=== PATIENT | female | born 1995 | race African-American/Black ===

== ENCOUNTER 2016-04-20 16:58 | Emergency (ER) | payer MEDICAID ==
[2016-04-20 17:22] VITALS: BP 107/49
== END 2016-04-20 21:32 | disposition left against medical advice (07) ==
LOC: ER 16:58
DX: Z53.9 Procedure and treatment not carried out, unspecified reason (principal); T85.848A Pain due to other internal prosthetic devices, implants and grafts, initial encounter

== ENCOUNTER 2016-11-18 13:35 | Emergency (ER) | payer MEDICAID ==
[2016-11-18 13:43] VITALS: BP 127/68
[2016-11-18] MEDS ORDERED: TETRACAINE HCL 0.5% OPH SOLN 2 ML ONE (14:23)
[2016-11-18] MEDS ORDERED: TETRACAINE HCL 0.5% OPH SOLN 2 ML OS ONE (14:29)
[2016-11-18] MEDS ORDERED: KETOROLAC TROMETHAMINE 0.45% 4 DROP/0.4 ML DROPERETTE OS ONE (14:30)
[2016-11-18] MEDS ORDERED: KETOROLAC TROMETHAMINE 0.45% 4 DROP/0.4 ML DROPERETTE ONE (14:33)
--- NOTE | 2016-11-18 14:36 | ER Document Report ---
ED Eye Complaint - General Chief Complaint: Eye Problem Stated Complaint: LEFT EYE IRRITATION, SWELLING Time Seen by Provider: 11/18/16 14:18 Notes: 21 yo female c/o left eye swelling after bug flew in eye yesterday. no eye pain , + tearing, + crusting this morning. non-contact wearer TRAVEL OUTSIDE OF THE [place] IN LAST 30 DAYS: No - HPI Onset: Yesterday Occurred at: Outdoors Quality of pain: Achy - Related Data Allergies/Adverse Reactions: naproxen Allergy (Verified 11/18/16 14:21) Home Medications: Current Home Medications Amphetamine Sulfate [Evekeo] 10 mg PO QHS 11/18/16 [History] Dextroamphetamine/Amphetamine [Adderall Xr 30 mg Capsule] 30 mg PO QAM 11/18/16 [History] Past Medical History - General Information source: Patient - Social History Smoking Status: Unknown if Ever Smoked Chew tobacco use (# tins/day): Yes Frequency of alcohol use: Occasional Drug Abuse: None Lives with: Family Family History: None Patient has suicidal ideation: No Patient has homicidal ideation: No - Medical History Medical History: Negative Pulmonary Medical History: Reports: Hx Asthma Renal/ Medical History: Denies: Hx Peritoneal Dialysis Psychiatric Medical History: Reports: Hx Attention Deficit Hyperactivity Disorder Past Surgical History: Reports: Hx Oral Surgery - wisdom teeth, Hx Tonsillectomy - Immunizations Hx Diphtheria, Pertussis, Tetanus Vaccination: No Review of Systems - Review of Systems Constitutional: No symptoms reported EENT: Eye pain Cardiovascular: No symptoms reported Respiratory: No symptoms reported Gastrointestinal: No symptoms reported Genitourinary: No symptoms reported Female Genitourinary: No symptoms reported Musculoskeletal: No symptoms reported Skin: No symptoms reported Hematologic/Lymphatic: No symptoms reported Neurological/Psychological: No symptoms reported Physical Exam - Vital signs Vitals: Temp Pulse Resp BP Pulse Ox 98.2 F 80 16 127/68 H 99 11/18/16 13:40 11/18/16 13:40 11/18/16 13:40 11/18/16 13:40 11/18/16 13:40 Interpretation: Normal - General General appearance: Appears well, Alert - HEENT Head: Normocephalic, Atraumatic Eyes: Normal. No: Periorbital ecchymosis, Periorbital edema Conjunctiva: Injected, Other - no flourescein uptake Extraocular movements intact: Yes Pupils: PERRL Tympanic membrane: Normal Mucous membranes: Moist Pharynx: Normal - Respiratory Respiratory status: No respiratory distress Chest status: Nontender Breath sounds: Normal Chest palpation: Normal - Cardiovascular Rhythm: Regular Heart sounds: Normal auscultation Murmur: No - Abdominal Inspection: Normal Distension: No distension Bowel sounds: Normal Tenderness: Nontender Organomegaly: No organomegaly - Back Back: Normal, Nontender - Extremities General upper extremity: Normal inspection, Nontender, Normal color, Normal ROM , Normal temperature General lower extremity: Normal inspection, Nontender, Normal color, Normal ROM , Normal temperature, Normal weight bearing. No: Skip's sign - Neurological Neuro grossly intact: Yes Cognition: Normal Orientation: AAOx4 Ewing Coma Scale Eye Opening: Spontaneous Mary Ann Coma Scale Verbal: Oriented Mary [place] Coma Scale Motor: Obeys Commands Ewing Coma Scale Total: 15 Speech: Normal Motor strength normal: LUE, RUE, LLE, RLE Sensory: Normal - Psychological Associated symptoms: Normal affect, Normal mood - Skin Skin Temperature: Warm Skin Moisture: Dry Skin Color: Normal Course - Vital Signs Vital signs: Temp Pulse Resp BP Pulse Ox 98.2 F 80 16 127/68 H 99 11/18/16 13:40 11/18/16 13:40 11/18/16 13:40 11/18/16 13:40 11/18/16 13:40 Discharge - Discharge Clinical Impression: Left conjunctivitis Qualifiers: Conjunctivitis type: acute Acute conjunctivitis type: unspecified Qualified Code(s): H10.32 - Unspecified acute conjunctivitis, left eye Condition: Stable Disposition: HOME, SELF-CARE Instructions: Conjunctivitis ([facility]), Eyedrop Use ([facility]) Additional Instructions: eye drops as prescribed cool compresses to eye motrin for swelling and discomfort follow up with primary care if symptoms persist follow up opthomolgy for any worsening Prescriptions: Polymyxin B Sulf/Trimethoprim [Polytrim Eye Drops] 2 ml OS Q6H #1 bottle
== END 2016-11-18 15:03 | disposition home or self-care (01) ==
LOC: ER 13:35
DX: H10.32 Unspecified acute conjunctivitis, left eye (principal); J45.909 Unspecified asthma, uncomplicated; Z88.8 Allergy status to other drugs, medicaments and biological substances; Z72.0 Tobacco use
CPT/HCPCS: 99283; J3490

== ENCOUNTER 2017-06-01 11:13 | Emergency (ER) | payer MEDICAID ==
[2017-06-01 11:18] VITALS: BP 104/53
[2017-06-01] MEDS ORDERED: ONDANSETRON HCL INJ/PF 4 MG/2 ML SDV IV ONE (12:17)
[2017-06-01] MEDS ORDERED: NORMAL SALINE 1000 ML 1,000 ML IV ONE (12:17)
--- NOTE | 2017-06-01 12:17 | ER Document Report ---
HPI - HPI Pain Level: 3 Notes: Patient is a 21-year-old female with no significant past medical history who presents to the ED complaining of nausea, vomiting, loose stool, epigastric pain 1-2 days. Patient states that she did feel "warm" yesterday. Patient states that she has not been able to keep any solids or fluids down and has thrown up every time she is tried. Patient states that yesterday she started throwing blood and continued to throw up blood this morning 7 hours ago. Patient states that the last time she had emesis was at that time. Patient states that she does have intermittent dark stool. Patient has not been taking any medicines for her symptoms. Patient states an allergy to naproxen. Patient is otherwise urinating normally. Denies any headache, fever, neck pain , URI, sore throat, chest pain, palpitations, syncope, cough, shortness of breath, wheeze, dyspnea, urinary retention, dysuria, hematuria, or rash. I have treated and performed a rapid initial assessment of this patient. A comprehensive ED assessment and evaluation of the patient, analysis of test results and completion of medical decision making process will be conducted by additional ED providers. PHYSICAL EXAMINATION: GENERAL: Well-appearing, well-nourished and in no acute distress. A&Ox4. Answers questions appropriately. LUNGS: Breath sounds clear to auscultation bilaterally and equal. No wheezes rales or rhonchi. HEART: Regular rate and rhythm without murmurs, rubs, gallops. ABDOMEN: Soft, nondistended abdomen. No guarding, no rebound. No masses appreciated. Normal bowel sounds present. No CVA tenderness bilaterally. + mild epigastric tenderness (cannot elicit thorough abd exam w/o table, however). Extremities: No cyanosis, clubbing, or edema b/l. NEUROLOGICAL: Normal speech, normal gait. PSYCH: Normal mood, normal affect. - REPRODUCTIVE Reproductive: DENIES: : - DERM Skin Color: Normal, [place] Past Medical History - Social History Smoking Status: Unknown if Ever Smoked Chew tobacco use (# tins/day): No Drug Abuse: None Family History: None Patient has suicidal ideation: No Patient has homicidal ideation: No Pulmonary Medical History: Reports: Hx Asthma Renal/ Medical History: Denies: Hx Peritoneal Dialysis Psychiatric Medical History: Reports: Hx Attention Deficit Hyperactivity Disorder Past Surgical History: Reports: Hx Oral Surgery - wisdom teeth, Hx Tonsillectomy - Immunizations Hx Diphtheria, Pertussis, Tetanus Vaccination: No Vertical Provider Document - INFECTION CONTROL TRAVEL OUTSIDE OF THE [place] IN LAST 30 DAYS: No - RESPIRATORY O2 Sat by Pulse Oximetry: 100 Course - Vital Signs Vital signs: Temp Pulse Resp BP Pulse Ox 98.5 F 71 16 104/53 L 100 06/01/17 11:17 06/01/17 11:17 06/01/17 11:17 06/01/17 11:17 06/01/17 11:17
[2017-06-01 12:59] LABS: ABSOLUTE LYMPHOCYTES (AUTO) 0.9 10^3/uL (0.5-4.7); ABSOLUTE MONOCYTES (AUTO) 0.3 10^3/uL (0.1-1.4); ABSOLUTE NEUT (AUTO) 3.1 10^3/uL (1.7-8.2); BASOPHILS % (AUTO) 0.3 % (0-2); EOSINOPHILS % (AUTO) 0.9 % (0-6); HEMATOCRIT 41.8 % (36.0-47.0); HEMOGLOBIN 14.3 g/dL (12.0-15.5); MEAN CORPUSCULAR HEMOGLOBIN 31.5 pg (27.0-33.4); MEAN CORPUSCULAR HGB CONC 34.2 g/dL (32.0-36.0); MEAN CORPUSCULAR VOLUME 92 fl (80-97); MONOCYTES % (AUTO) 7.6 % (3-13); PLATELET COUNT 225 10^3/uL (150-450); RED BLOOD COUNT 4.54 10^6/uL (3.72-5.28); RED CELL DISTRIBUTION WIDTH 12.5 % (11.5-14.0); SEGMENTED NEUTROPHILS % (AUTO) 71.2 % (42-78); TOTAL CELLS COUNTED % (AUTO) 100 %; WHITE BLOOD COUNT 4.3 10^3/uL (4.0-10.5)
[2017-06-01 13:18] LABS: ALANINE AMINOTRANSFERASE 27 U/L (9-52); ALBUMIN 4.6 g/dL (3.5-5.0); ALKALINE PHOSPHATASE 71 U/L (38-126); ANION GAP 10 (5-19); ASPARTATE AMINO TRANSFERASE 22 U/L (14-36); BILIRUBIN,DIRECT 0.4 mg/dL (0.0-0.4); BILIRUBIN,TOTAL 1.1 mg/dL (0.2-1.3); BLOOD UREA NITROGEN 15 mg/dL (7-20); CALCIUM 10.2 mg/dL (8.4-10.2); CARBON DIOXIDE 26 mmol/L (22-30); CHLORIDE 105 mmol/L (98-107); GLUCOSE 83 mg/dL (75-110); LIPASE 59.7 U/L (23-300); POTASSIUM 4.3 mmol/L (3.6-5.0); SODIUM 140.7 mmol/L (137-145); TOTAL PROTEIN 7.3 g/dL (6.3-8.2)
--- NOTE | 2017-06-01 13:25 | RADIOLOGY REPORT (SQ) ---
EXAM DESCRIPTION: CHEST PA/LAT COMPLETED DATE/TIME: 06/01/2017 1:17 pm REASON FOR STUDY: epigastric pain COMPARISON: None. EXAM PARAMETERS: NUMBER OF VIEWS: two views TECHNIQUE: Digital Frontal and Lateral radiographic views of the chest acquired. RADIATION DOSE: NA LIMITATIONS: none FINDINGS: LUNGS AND PLEURA: No opacities, masses or pneumothorax. No pleural effusion. MEDIASTINUM AND HILAR STRUCTURES: No masses or contour abnormalities. HEART AND VASCULAR STRUCTURES: Heart normal size. No evidence for failure. BONES: No acute findings. HARDWARE: None in the chest. OTHER: No other significant finding. IMPRESSION: NO SIGNIFICANT RADIOGRAPHIC FINDING IN THE CHEST. TECHNICAL DOCUMENTATION: JOB ID: [id number] [employer]- All Rights Reserved
[2017-06-01] MEDS ORDERED: METOCLOPRAMIDE HCL INJ/PF 10 MG/2 ML SDV IV ONE (15:11)
--- NOTE | 2017-06-01 15:17 | ER Document Report ---
ED General - General Chief Complaint: Nausea/Vomiting/Diarrhea Stated Complaint: NAUSEA Time Seen by Provider: 06/01/17 12:05 Mode of Arrival: Ambulatory Information source: Patient Notes: 21-year-old female presents with complaints of nausea vomiting and diarrhea over the past few days. Patient notes she vomits every time she eats. Patient notes the pain was only in the epigastric region and has actually resolved prior to my evaluation Patient denies any fevers or chills denies any similar complaints Patient does note bright red blood in vomit intermittently TRAVEL OUTSIDE OF THE [place] IN LAST 30 DAYS: No - HPI Onset: Other Onset/Duration: Intermittent Quality of pain: Burning Severity: Mild Pain Level: 1 Associated symptoms: Diarrhea, Nausea, Vomiting Exacerbated by: Food Relieved by: Denies Similar symptoms previously: No Recently seen / treated by doctor: No - Related Data Allergies/Adverse Reactions: naproxen Allergy (Verified 06/01/17 12:05) Past Medical History - Social History Smoking Status: Never Smoker Cigarette use (# per day): No Chew tobacco use (# tins/day): No Smoking Education Provided: No Drug Abuse: None Family History: None Patient has suicidal ideation: No Patient has homicidal ideation: No Pulmonary Medical History: Reports: Hx Asthma Renal/ Medical History: Denies: Hx Peritoneal Dialysis Psychiatric Medical History: Reports: Hx Attention Deficit Hyperactivity Disorder Past Surgical History: Reports: Hx Oral Surgery - wisdom teeth, Hx Tonsillectomy - Immunizations Hx Diphtheria, Pertussis, Tetanus Vaccination: No Review of Systems - Review of Systems Notes: REVIEW OF SYSTEMS: CONSTITUTIONAL : Denies fever, chills, or sweats. Denies recent illness. EENT: Denies eye, ear, throat, or mouth pain or symptoms. Denies nasal or sinus congestion or discharge. Denies throat, tongue, or mouth swelling or difficulty swallowing. CARDIOVASCULAR: Denies chest pain. Denies palpitations or racing or irregular heart beat. Denies ankle edema. RESPIRATORY: Denies cough, cold, or chest congestion. Denies shortness of breath, difficulty breathing, or wheezing. GASTROINTESTINAL: Admits nausea vomiting diarrhea epigastric pain blood in vomit GENITOURINARY: Denies difficulty urinating, painful urination, burning, frequency, blood in urine, or discharge. FEMALE GENITOURINARY: Denies vaginal bleeding, heavy or abnormal periods, irregular periods. Denies vaginal discharge or odor. MUSCULOSKELETAL: Denies back or neck pain or stiffness. Denies joint pain or swelling. SKIN: Denies rash, lesions or sores. HEMATOLOGIC : Denies easy bruising or bleeding. LYMPHATIC: Denies swollen, enlarged glands. NEUROLOGICAL: Denies confusion or altered mental status. Denies passing out or loss of consciousness. Denies dizziness or lightheadedness. Denies headache. Denies weakness or paralysis or loss of use of either side. Denies problems with gait or speech. Denies sensory loss, numbness, or tingling. Denies seizures. PSYCHIATRIC: Denies anxiety or stress. Denies depression, suicidal ideation, or homicidal ideation. ALL OTHER SYSTEMS REVIEWED AND NEGATIVE. PHYSICAL EXAMINATION: GENERAL: Well-appearing, well-nourished and in no acute distress. Patient is cuddling in the bed with no difficulty HEAD: Atraumatic, normocephalic. EYES: Pupils equal round and reactive to light, extraocular movements intact, conjunctiva are normal. ENT: Nares patent, oropharynx clear without exudates. Moist mucous membranes. NECK: Normal range of motion, supple without lymphadenopathy LUNGS: Breath sounds clear to auscultation bilaterally and equal. No wheezes rales or rhonchi. HEART: Regular rate and rhythm without murmurs ABDOMEN: Soft, nontender, nondistended abdomen. No guarding, no rebound. No masses appreciated. Female : deferred Musculoskeletal: Normal range of motion, no pitting or edema. No cyanosis. NEUROLOGICAL: Cranial nerves grossly intact. Normal speech, normal gait. Normal sensory, motor exams PSYCH: Normal mood, normal affect. SKIN: Warm, Dry, normal turgor, no rashes or lesions noted. Dictation was performed using SLID voice recognition software Physical Exam - Vital signs Vitals: Temp Pulse Resp BP Pulse Ox 98.5 F 71 16 104/53 L 100 06/01/17 11:17 06/01/17 11:17 06/01/17 11:17 06/01/17 11:17 06/01/17 11:17 Course - Re-evaluation Re-evalutation: 06/01/17 15:33 Patient's examination is completely benign her symptoms have since resolved with intervention here, her lab work noted no significant abnormality, given the bright red blood I will place patient on Pepcid to heal her gastritis which is probably secondary to the vomiting episodes. Otherwise she looks well is in no distress and will be discharged home with GI follow-up After performing a Medical Screening Examination, I estimate there is LOW risk for ACUTE APPENDICITIS, BOWEL OBSTRUCTION, ACUTE CHOLECYSTITIS, PERFORATED DIVERTICULITIS, INCARCERATED HERNIA, PANCREATITIS, PELVIC INFLAMMATORY DISEASE, PERFORATED ULCER, ECTOPIC , or TUBO-OVARIAN ABSCESS, thus I consider the discharge disposition reasonable. Also, there is no evidence or peritonitis , sepsis, or toxicity. I have reevaluated this patient multiple times and no significant life threatening changes are noted. The patient and I have discussed the diagnosis and risks, and we agree with discharging home with close follow-up with the understanding that symptoms and presentations can change. We also discussed returning to the Emergency Department immediately if new or worsening symptoms occur. We have discussed the symptoms which are most concerning (e.g., bloody stool, fever, changing or worsening pain, vomiting) that necessitate immediate return. - Vital Signs Vital signs: Temp Pulse Resp BP Pulse Ox 98.5 F 71 16 104/53 L 100 06/01/17 11:17 06/01/17 11:17 06/01/17 11:17 06/01/17 11:17 06/01/17 12:18 - Laboratory Result Diagrams: 06/01/17 12:47 06/01/17 12:47 Discharge - Discharge Clinical Impression: Nausea vomiting and diarrhea Gastritis Qualifiers: Gastritis type: superficial Chronicity: acute Gastritis bleeding: with bleeding Qualified Code(s): K29.01 - Acute gastritis with bleeding Condition: Stable Disposition: HOME, SELF-CARE Instructions: Antinausea Medication ([facility]), Diarrhea, Nonspecific ([facility]) Prescriptions: Famotidine [Pepcid 20 mg Tablet] 20 mg PO DAILY #12 tablet Metoclopramide HCl [Reglan 10 mg Tablet] 1 - 2 tab PO Q6 #25 tablet Referrals: EZRA WHATLEY MD [ACTIVE STAFF] - Follow up in 3-5 days
== END 2017-06-01 15:46 | disposition home or self-care (01) ==
LOC: ER 11:13
DX: K29.01 Acute gastritis with bleeding (principal); J45.909 Unspecified asthma, uncomplicated; Z88.8 Allergy status to other drugs, medicaments and biological substances
CPT/HCPCS: 99284; 96374; 96375; 36415; 83690; 85025; 80053; 71046; J2765; J2405; J7030

== ENCOUNTER 2017-10-31 06:25 | Emergency (ER) | payer MEDICAID ==
[2017-10-31 06:30] VITALS: BP 114/67
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
== END 2017-10-31 09:00 | disposition home or self-care (01) ==
LOC: ER 06:25
PROC: 2W3RX1Z Immobilization of Left Lower Leg using Splint (ICD-10-PCS; principal; 2017-10-31)
DX: S93.402A Sprain of unspecified ligament of left ankle, initial encounter (principal); S63.91XA Sprain of unspecified part of right wrist and hand, initial encounter; M79.641 Pain in right hand; M25.572 Pain in left ankle and joints of left foot; Y04.0XXA Assault by unarmed brawl or fight, initial encounter; F17.200 Nicotine dependence, unspecified, uncomplicated; J45.909 Unspecified asthma, uncomplicated
CPT/HCPCS: 99283; 73610; 73130; 29515; L4350

== ENCOUNTER 2018-04-09 02:07 | Emergency (ER) | payer MEDICAID ==
[2018-04-09 02:36] VITALS: BP 128/57
[2018-04-09] MEDS ORDERED: PHENAZOPYRIDINE HCL 200 MG TABLET PO ONE (03:59)
[2018-04-09 04:48] LABS: APPEARANCE,URINE SLIGHTLY-CLOUDY; BILIRUBIN,URINE NEGATIVE (NEGATIVE); COLOR,URINE YELLOW; GLUCOSE, URINE NEGATIVE (NEGATIVE); KETONES,URINE NEGATIVE (NEGATIVE); LEUKOCYTE ESTERASE,URINE MODERATE (NEGATIVE); NITRITE,URINE NEGATIVE (NEGATIVE); PROTEIN,URINE NEGATIVE (NEGATIVE); URINE SPECIFIC GRAVITY 1.008; UROBILINOGEN,URINE NEGATIVE mg/dL (<2.0)
[2018-04-09] MEDS ORDERED: CEPHALEXIN 500 MG CAPSULE PO ONE (04:57)
--- NOTE | 2018-04-09 04:57 | ER Document Report ---
ED General - General Chief Complaint: Pain With Urination Stated Complaint: VAGINAL BLEEDING/PAIN WITH URINATION Time Seen by Provider: 04/09/18 02:53 Notes: Patient is a 22-year-old female presents to the emergency department complaining of dysuria for the last 5 days. Patient states the dysuria has increased over the last couple of days and this evening when she urinated and wiped she noted a scant amount of blood on the toilet paper. Patient is denying any vaginal discharge or vaginal lesions. Patient's denying any abdominal pain or fevers, or back pain. Past medical history: ADHD Medications: Adderall Allergies: Ibuprofen, naproxen TRAVEL OUTSIDE OF THE [place] IN LAST 30 DAYS: No - Related Data Allergies/Adverse Reactions: ibuprofen [From Motrin] Allergy (Verified 10/31/17 07:24) naproxen Allergy (Verified 10/31/17 07:24) Past Medical History - General Information source: Patient - Social History Smoking Status: Current Some Day Smoker Chew tobacco use (# tins/day): No Frequency of alcohol use: Rare Drug Abuse: None Family History: None Patient has suicidal ideation: No Patient has homicidal ideation: No Pulmonary Medical History: Reports: Hx Asthma Renal/ Medical History: Denies: Hx Peritoneal Dialysis Psychiatric Medical History: Reports: Hx Attention Deficit Hyperactivity Disorder, Hx Bipolar Disorder Past Surgical History: Reports: Hx Oral Surgery - wisdom teeth, Hx Tonsillectomy - Immunizations Hx Diphtheria, Pertussis, Tetanus Vaccination: No Review of Systems - Review of Systems Constitutional: See HPI EENT: No symptoms reported Cardiovascular: No symptoms reported Respiratory: No symptoms reported Gastrointestinal: See HPI Genitourinary: See HPI Female Genitourinary: See HPI Musculoskeletal: No symptoms reported Skin: No symptoms reported Hematologic/Lymphatic: No symptoms reported Neurological/Psychological: No symptoms reported Physical Exam - Vital signs Vitals: Temp Pulse Resp BP Pulse Ox 97.6 F 88 16 128/57 H 100 04/09/18 02:07 04/09/18 02:07 04/09/18 02:07 04/09/18 02:07 04/09/18 02:07 - Notes Notes: GENERAL: Alert, interacts well. No acute distress. HEAD: Normocephalic, atraumatic. EYES: Pupils equal, round, and reactive to light. Extraocular movements intact. ENT: Oral mucosa moist, tongue midline. NECK: Full range of motion. Supple. Trachea midline. LUNGS: Clear to auscultation bilaterally, no wheezes, rales, or rhonchi. No respiratory distress. HEART: Regular rate and rhythm. No murmur ABDOMEN: Soft, non-tender. Non-distended. Bowel sounds present in all 4 quadrants. No McBurney's point tenderness, no Cotter sign. Very minor palpation upon suprapubic region EXTREMITIES: Moves all 4 extremities spontaneously. No edema, normal radial and dorsalis pedis pulses bilaterally. No cyanosis. BACK: no cervical, thoracic, lumbar midline tenderness. No saddle anesthesia, normal distal neurovascular exam. No CVA tenderness bilaterally NEUROLOGICAL: Alert and oriented x3. Normal speech. cranial nerves II through XII grossly intact PSYCH: Normal affect, normal mood. SKIN: Warm, dry, normal turgor. No rashes or lesions noted. Course - Re-evaluation Re-evalutation: 04/09/18 04:55 Patient's urine shows moderate high leukocyte esterase 8 WBCs and trace bacteria. Due to patient's complaints of dysuria I will treat for urinary tract infection. Discussed possible infection is coming from her vaginal area. Patient is denying vaginal discharge malodor or color. Patient is refusing a pelvic exam at this time. Discussed need to follow-up with primary care provider. Patient's abdominal exam reveals very minor suprapubic tenderness otherwise unremarkable. Vital signs stable, patient requesting discharge. - Vital Signs Vital signs: Temp Pulse Resp BP Pulse Ox 97.6 F 88 16 128/57 H 100 04/09/18 02:07 04/09/18 02:07 04/09/18 02:07 04/09/18 02:07 04/09/18 02:07 - Laboratory Laboratory results interpreted by me: 04/09/18 03:35 Urine Blood LARGE H Ur Leukocyte Esterase MODERATE H Discharge - Discharge Clinical Impression: Dysuria Urinary tract infection Qualifiers: Urinary tract infection type: acute cystitis Hematuria presence: with hematuria Qualified Code(s): N30.01 - Acute cystitis with hematuria Condition: Stable Disposition: HOME, SELF-CARE Instructions: Cephalexin ([facility]), Urinary Tract Infection ([facility]) Additional Instructions: As we discussed you have been seen and treated in the emergency department for a urinary tract infection. You should take medications as prescribed. You should follow-up with your primary care provider in the next 24-48 hours. Please return to the emergency room for any other concerning symptoms. Prescriptions: Cephalexin Monohydrate [Keflex 500 mg Capsule] 500 mg PO BID 7 Days #14 capsule
== END 2018-04-09 05:45 | disposition home or self-care (01) ==
LOC: ER 02:07
DX: N30.01 Acute cystitis with hematuria (principal); F17.200 Nicotine dependence, unspecified, uncomplicated; J45.909 Unspecified asthma, uncomplicated; F98.8 Other specified behavioral and emotional disorders with onset usually occurring in childhood and adolescence; Z79.899 Other long term (current) drug therapy; Z88.6 Allergy status to analgesic agent; Z88.8 Allergy status to other drugs, medicaments and biological substances
CPT/HCPCS: 99283; 87086; 81025; 87088; 81001; 87186; J3490

== ENCOUNTER 2018-07-26 23:55 | Emergency (ER) | payer MEDICAID ==
[2018-07-27] MEDS ORDERED: ONDANSETRON 4 MG TAB.RAPDIS PO ONE (02:31)
--- NOTE | 2018-07-27 02:34 | ER Document Report ---
ED Medical Screen (RME) - General Chief Complaint: Abdominal Pain Stated Complaint: ABDOMINAL PAIN Time Seen by Provider: 07/27/18 02:29 Notes: 23-year-old female, chief complaint of waking up tonight with a discomfort in her chest and a sensation of shortness of breath. Also reports frequent nausea, a lot of "gas" in the abdomen, hard bowel movement recently with no good bowel movement. Denies fever/chills. Reports swelling of the abdomen. Denies . Denies any medical history. TRAVEL OUTSIDE OF THE [place] IN LAST 30 DAYS: No - Related Data Allergies/Adverse Reactions: ibuprofen [From Motrin] Allergy (Verified 10/31/17 07:24) naproxen Allergy (Verified 10/31/17 07:24) Past Medical History Pulmonary Medical History: Reports: Hx Asthma Renal/ Medical History: Denies: Hx Peritoneal Dialysis Psychiatric Medical History: Reports: Hx Attention Deficit Hyperactivity Disorder, Hx Bipolar Disorder Past Surgical History: Reports: Hx Oral Surgery - wisdom teeth, Hx Tonsillectomy - Immunizations Hx Diphtheria, Pertussis, Tetanus Vaccination: No Physical Exam - Vital signs Vitals: Temp Pulse Resp BP Pulse Ox 98.0 F 65 18 132/60 H 100 07/27/18 00:04 07/27/18 00:04 07/27/18 00:04 07/27/18 00:04 07/27/18 00:04 - Abdominal Tenderness: Tender - Generalized, nonspecific, no guarding. Borderline distention. Course - Re-evaluation Re-evalutation: I have greeted and performed a rapid initial assessment of this patient. A comprehensive ED assessment and evaluation of the patient, analysis of test results and completion of the medical decision making process will be conducted by additional ED providers. - Vital Signs Vital signs: Temp Pulse Resp BP Pulse Ox 98.0 F 65 18 132/60 H 100 07/27/18 00:04 07/27/18 00:04 07/27/18 00:04 07/27/18 00:04 07/27/18 00:04
[2018-07-27 03:27] LABS: APPEARANCE,URINE CLEAR; BILIRUBIN,URINE NEGATIVE (NEGATIVE); COLOR,URINE YELLOW; GLUCOSE, URINE NEGATIVE (NEGATIVE); KETONES,URINE NEGATIVE (NEGATIVE); LEUKOCYTE ESTERASE,URINE TRACE (NEGATIVE); NITRITE,URINE NEGATIVE (NEGATIVE); PROTEIN,URINE NEGATIVE (NEGATIVE)
[2018-07-27 05:09] LABS: ABSOLUTE EOSINOPHILS # (AUTO) 0.1 10^3/uL (0.0-0.6); ABSOLUTE LYMPHOCYTES (AUTO) 3.2 10^3/uL (0.5-4.7); ABSOLUTE MONOCYTES (AUTO) 0.5 10^3/uL (0.1-1.4); BASOPHILS % (AUTO) 0.5 % (0-2); EOSINOPHILS % (AUTO) 1.3 % (0-6); HEMOGLOBIN 14.5 g/dL (12.0-15.5); MEAN CORPUSCULAR HEMOGLOBIN 32.3 pg (27.0-33.4); MEAN CORPUSCULAR HGB CONC 34.4 g/dL (32.0-36.0); MEAN CORPUSCULAR VOLUME 94 fl (80-97); MONOCYTES % (AUTO) 7.4 % (3-13); PLATELET COUNT 215 10^3/uL (150-450); RED BLOOD COUNT 4.47 10^6/uL (3.72-5.28); RED CELL DISTRIBUTION WIDTH 13.3 % (11.5-14.0); SEGMENTED NEUTROPHILS % (AUTO) 43.8 % (42-78); TOTAL CELLS COUNTED % (AUTO) 100 %; WHITE BLOOD COUNT 6.8 10^3/uL (4.0-10.5)
--- NOTE | 2018-07-27 05:29 | RADIOLOGY REPORT (SQ) ---
EXAM DESCRIPTION: XR ABDOMEN SUPINE AND ERECT WITH CHEST (ABD ACUTE SERIES) COMPLETED DATE/TME: 07/27/2018 02:31 CLINICAL HISTORY: 23 years, Female, abd pain and swelling, shortness of breath COMPARISON: None. NUMBER OF VIEWS: Four TECHNIQUE: AP view of the chest with supine and upright images of the abdomen LIMITATIONS: None. FINDINGS: The lungs are clear. The heart is normal in size. There is no pneumothorax or pleural effusion. The bones are unremarkable. There is no intraperitoneal free air. No dilated loops of small bowel are identified. There are no abnormal calcifications. There is a large amount of stool within the colon. IMPRESSION: No acute cardiopulmonary abnormality. Nonobstructing bowel gas pattern. copyright 2010 [employer]- All Rights Reserved
[2018-07-27 05:32] LABS: ALANINE AMINOTRANSFERASE 17 U/L (9-52); ALBUMIN 4.5 g/dL (3.5-5.0); ALKALINE PHOSPHATASE 79 U/L (38-126); ANION GAP 11 (5-19); ASPARTATE AMINO TRANSFERASE 19 U/L (14-36); BILIRUBIN,DIRECT 0.2 mg/dL (0.0-0.4); BILIRUBIN,TOTAL 0.6 mg/dL (0.2-1.3); BLOOD UREA NITROGEN 15 mg/dL (7-20); CALCIUM 10.6 mg/dL (8.4-10.2); CARBON DIOXIDE 22 mmol/L (22-30); CHLORIDE 107 mmol/L (98-107); GLUCOSE 96 mg/dL (75-110); LIPASE 100.3 U/L (23-300); POTASSIUM 4.1 mmol/L (3.6-5.0); SODIUM 140.1 mmol/L (137-145); TOTAL PROTEIN 7.3 g/dL (6.3-8.2)
[2018-07-27] MEDS ORDERED: MAGNESIUM CITRATE 296 ML BOTTLE PO ONE (05:32)
[2018-07-27 05:34] VITALS: BP 125/53
--- NOTE | 2018-07-27 06:50 | ER Document Report ---
Entered by ED HUANG SCRIBE 07/27/18 0505 Acting as scribe for:WALESKA SOLANO MD ED General - General Chief Complaint: Abdominal Pain Stated Complaint: ABDOMINAL PAIN Time Seen by Provider: 07/27/18 02:29 Mode of Arrival: Ambulatory Information source: Patient Notes: Patient is a 23 year old female with asthma presents to the emergency department complaining of multiple symptoms including chest pain, abdominal pain, body aches, constipation and increased flatulence. Patient states she woke up at 2100 with chest pain and diaphoresis. She states for the last 2 weeks, she has had decreased bowel movements, further stating she eventually had one yesterday but it was very small. She denies any similar symptoms in the past. Patient's LMP was approximately 1 month ago. TRAVEL OUTSIDE OF THE [place] IN LAST 30 DAYS: No - Related Data Allergies/Adverse Reactions: ibuprofen [From Motrin] Allergy (Verified 07/27/18 05:28) naproxen Allergy (Verified 07/27/18 05:28) Past Medical History - General Information source: Patient - Social History Smoking Status: Former Smoker - reports quiting 2-3 months ago as of 07/27/2018 Cigarette use (# per day): No Chew tobacco use (# tins/day): No Frequency of alcohol use: Occasional Family History: None Pulmonary Medical History: Reports: Hx Asthma Psychiatric Medical History: Reports: Hx Attention Deficit Hyperactivity Disorder, Hx Bipolar Disorder Past Surgical History: Reports: Hx Oral Surgery - wisdom teeth, Hx Tonsillectomy - Immunizations Hx Diphtheria, Pertussis, Tetanus Vaccination: No Review of Systems - Review of Systems Constitutional: No symptoms reported EENT: No symptoms reported Cardiovascular: See HPI, Chest pain Respiratory: No symptoms reported Gastrointestinal: See HPI Genitourinary: No symptoms reported Female Genitourinary: No symptoms reported Musculoskeletal: See HPI Skin: No symptoms reported Hematologic/Lymphatic: No symptoms reported Neurological/Psychological: No symptoms reported -: Yes All other systems reviewed and negative Physical Exam - Vital signs Vitals: Temp Pulse Resp BP Pulse Ox 98.0 F 65 18 132/60 H 100 07/27/18 00:04 07/27/18 00:04 07/27/18 00:04 07/27/18 00:04 07/27/18 00:04 - Notes Notes: GENERAL: Alert, interacts well. No acute distress. HEAD: Normocephalic, atraumatic. EYES: Pupils equal, round, and reactive to light. Extraocular movements intact. ENT: Oral mucosa moist, tongue midline. NECK: Full range of motion. Supple. Trachea midline. LUNGS: Clear to auscultation bilaterally, no wheezes, rales, or rhonchi. No respiratory distress. HEART: Regular rate and rhythm. No murmurs, gallops, or rubs. ABDOMEN: Soft, non-tender. Non-distended. Hyperactive bowel sounds. No guarding, rigidity, or rebound. EXTREMITIES: Moves all 4 extremities spontaneously. No edema, radial and dorsalis pedis pulses 2/4 bilaterally. No cyanosis. NEUROLOGICAL: Alert and oriented x3. Normal speech. PSYCH: Normal affect, normal mood. SKIN: Warm, dry, normal turgor. No rashes or lesions noted. Course - Vital Signs Vital signs: Temp Pulse Resp BP Pulse Ox 98.1 F 61 14 125/53 L 98 07/27/18 05:25 07/27/18 05:25 07/27/18 05:25 07/27/18 05:25 07/27/18 05:25 - Laboratory Result Diagrams: 07/27/18 03:05 07/27/18 03:05 Laboratory results interpreted by me: 07/27/18 07/27/18 07/27/18 03:05 03:05 03:05 Lymphocytes % 47.0 H Calcium 10.6 H Urine Urobilinogen 2.0 H Ur Leukocyte Esterase TRACE H Urine Ascorbic Acid 20 H - Diagnostic Test Radiology reviewed: Image reviewed - Fecal load noted throughout the colon. No other gross abnormalities. - EKG Interpretation by [place] EKG shows normal: Sinus rhythm, [place], Intervals, QRS Complexes, ST-T Waves Rate: Normal - 63 Rhythm: NSR Discharge - Discharge Clinical Impression: Constipation Qualifiers: Constipation type: unspecified constipation type Qualified Code(s): K59.00 - Constipation, unspecified Abdominal pain Qualifiers: Abdominal location: generalized Qualified Code(s): R10.84 - Generalized abdominal pain Chest pain Qualifiers: Chest pain type: unspecified Qualified Code(s): R07.9 - Chest pain, unspecified Condition: Stable Disposition: HOME, SELF-CARE Additional Instructions: Constipation Constipation is a common problem. It is especially likely as you get older. Constipation is a common cause of abdominal pain, but sometimes causes no symptoms at all. Causes of constipation include certain medications, dehydration, diets, inactivity, and low-fiber intake. Rarely, it can be a symptom of underlying disease. The physician has evaluated you for this. Avoid constipation by eating a diet high in fiber, fruits, and vegetables. Drink plenty of liquids. Get regular exercise. If possible, avoid constipating medicines like narcotic pain medication. Some vitamin tablets can cause constipation. Stool softeners may be needed for difficult cases. An excellent stool softener is Konsyl which is available at [employer], and [employer]. Just add a teaspoon to a glass of pineapple or orange juice daily or twice a day if needed. Laxatives are useful for occasional constipation. You should use them only when necessary. Too-frequent use can make your bowels dependent on them. Some over the counter laxatives available without prescription are: Milk of Magnesia, 1-2 tablespoons twice a day Dulcolax, 5 mg pill or 10 mg suppository. Citrate of Magnesia, 4-5 ounces a day for a day or two For acute constipation, Fleet's Enemas and Dulcolax suppositories are helpful. Chronic, assisted use of laxatives or enemas is not a good idea. Your bowel may become dependant on them. You do not need to have a bowel movement every day. Many people do fine with a bowel movement every three or four days. You should call your doctor or return for re-evaluation if you pass blood in the stool, or if you develop fever or increasing abdominal pain. Forms: Return to Work Scribe Attestation: 07/27/18 05:51 I personally performed the services described in the documentation, reviewed and edited the documentation which was dictated to the scribe in my presence, and it accurately records my words and actions. I personally performed the services described in the documentation, reviewed and edited the documentation which was dictated to the scribe in my presence, and it accurately records my words and actions.
--- NOTE | 2018-07-28 10:23 | EKG REPORT ---
SEVERITY:- NORMAL ECG - SINUS RHYTHM : Confirmed by: Josey Mcgovern 28-Jul-2018 10:22:20
== END 2018-07-27 05:55 | disposition home or self-care (01) ==
LOC: ER 23:55
DX: K59.00 Constipation, unspecified (principal); R10.84 Generalized abdominal pain; R07.9 Chest pain, unspecified; Z88.6 Allergy status to analgesic agent
CPT/HCPCS: 93005; 99284; 36415; 83690; 84703; 85025; 80053; 81001; 74022; 93010; J3490; S0119

== ENCOUNTER 2018-08-19 16:17 | Emergency (ER) | payer MEDICAID ==
[2018-08-19] MEDS ORDERED: ACETAMINOPHEN 325 MG TABLET PO ONE (18:31)
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
--- NOTE | 2018-08-19 19:00 | RADIOLOGY REPORT (SQ) ---
EXAM DESCRIPTION: HAND RIGHT 3 VIEWS COMPLETED DATE/TIME: 08/19/2018 6:43 pm REASON FOR STUDY: 4TH FINGER INJURY AT PIP COMPARISON: None. EXAM PARAMETERS: NUMBER OF VIEWS: Three views. TECHNIQUE: AP, lateral and oblique radiographic images acquired of the right hand. LIMITATIONS: None. FINDINGS: MINERALIZATION: Normal. BONES: No acute fracture or dislocation. No worrisome bone lesions. JOINTS: No effusion. SOFT TISSUES: No significant soft tissue swelling. No radiopaque foreign body. OTHER: No other significant finding. IMPRESSION: NO FRACTURE. TECHNICAL DOCUMENTATION: JOB ID: [id number] [id number] 2010 [employer]- All Rights Reserved Reading location - IP/workstation name: [email or web address]
[2018-08-19 19:02] LABS: APPEARANCE,URINE CLOUDY; BILIRUBIN,URINE NEGATIVE (NEGATIVE); COLOR,URINE YELLOW; GLUCOSE, URINE NEGATIVE (NEGATIVE); KETONES,URINE TRACE mg/dL (NEGATIVE); LEUKOCYTE ESTERASE,URINE MODERATE (NEGATIVE); NITRITE,URINE NEGATIVE (NEGATIVE); PROTEIN,URINE NEGATIVE (NEGATIVE); URINE SPECIFIC GRAVITY 1.025
[2018-08-19 20:14] VITALS: BP 103/68
== END 2018-08-19 20:14 | disposition home or self-care (01) ==
LOC: ER 16:17
DX: K59.00 Constipation, unspecified (principal); S63.634A Sprain of interphalangeal joint of right ring finger, initial encounter; R10.9 Unspecified abdominal pain; X58.XXXA Exposure to other specified factors, initial encounter; Z88.6 Allergy status to analgesic agent
CPT/HCPCS: 81001; 81025; 99284

== ENCOUNTER 2018-09-22 01:15 | Emergency (ER) | payer MEDICAID ==
[2018-09-22 01:33] VITALS: BP 114/66
[2018-09-22] MEDS ORDERED: PROMETHAZINE HCL 25 MG TABLET PO ONE (04:08)
[2018-09-22] MEDS ORDERED: LIDOCAINE 4% TRANSPARENT DRESSING 5 GM KIT TP ONE (04:08)
[2018-09-22] MEDS ORDERED: OXYCODONE-ACETAMINOPHEN 5-325 MG TABLET PO ONE (04:08)
--- NOTE | 2018-09-22 04:11 | ER Document Report ---
HPI - HPI Time Seen by Provider: 09/22/18 04:02 Pain Level: 5 Context: Patient is a 23-year-old female that comes to the emergency department for chief complaint of an abscess on her chin on the left side. She states she was seen yesterday, this happened at [facility] emergency department, she states they placed on clindamycin. She states it has not improved. She has continued drainage from the area. She denies fever/chills, nausea/vomiting. She is not a diabetic. She denies any medical problems. She denies . - REPRODUCTIVE LMP: 09/05/18 Reproductive: DENIES: : Past Medical History - General Information source: Patient - Social History Smoking Status: Never Smoker Drug Abuse: None Lives with: Alone Family History: None Pulmonary Medical History: Reports: Hx Asthma Renal/ Medical History: Denies: Hx Peritoneal Dialysis Psychiatric Medical History: Reports: Hx Attention Deficit Hyperactivity Disorder, Hx Bipolar Disorder Past Surgical History: Reports: Hx Oral Surgery - wisdom teeth, Hx Tonsillectomy - Immunizations Hx Diphtheria, Pertussis, Tetanus Vaccination: Yes Vertical Provider Document - CONSTITUTIONAL General Appearance: WD/WN, No Apparent Distress - INFECTION CONTROL TRAVEL OUTSIDE OF THE [place] IN LAST 30 DAYS: No - HEENT HEENT: Atraumatic, Normal ENT Exam, Normocephalic - NECK Neck: Normal Inspection - RESPIRATORY Respiratory: Breath Sounds Normal, No Respiratory Distress - CARDIOVASCULAR Cardiovascular: Regular Rate, Regular Rhythm - GI/ABDOMEN Gastrointestinal: Abdomen Soft, Abdomen Non-Tender - BACK Back: Normal Inspection - NEURO Level of Consciousness: Awake, Alert, Appropriate Motor/Sensory: No Motor Deficit, No Sensory Deficit - DERM Integumentary: Abscess - There is an abscess over the edge of the chin on the left side with some surrounding mild cellulitis. There is an opening and a small amount of purulent drainage. Skin examination otherwise unremarkable. Course - Re-evaluation Re-evalutation: Abscess was opened and drained with an 18-gauge needle. There is some small amount of surrounding cellulitis. Patient states it is improving. She is currently on clindamycin, she will continue this. Discussed expectations, follow-up, return precautions. Patient states understanding and agreement. - Vital Signs Vital signs: Temp Pulse Resp BP Pulse Ox 98.0 F 82 14 114/66 98 09/22/18 01:32 09/22/18 01:32 06/06/19 01:32 09/22/18 01:32 09/22/18 01:32 Procedures - Incision and Drainage Chin Type: Single Blade size: Other - 18-gauge needle I&D procedure: Other - Cleaned with alcohol Incision Method: Incision made with needle Notes: Area was cleaned with alcohol. Discussed with patient, decision was made to not use lidocaine but LMX was placed on the area before hand. Incision made with 18-gauge needle, this caused about 3 cc of purulent drainage, a small cord was also removed. A second incision was made with the needle in the same location just to widen this and a small amount of purulent drainage again was produced. Afterwards this was cleaned and dressed. Discharge - Discharge Clinical Impression: Facial abscess Condition: Stable Disposition: HOME, SELF-CARE Additional Instructions: Your evaluation is consistent with a facial abscess and surrounding cellulitis. The abscess was drained, this will probably continue to drain for the next few days. Take the antibiotics as prescribed. Keep area clean, clean with soap and water, apply absorbent dressing over the area. Follow-up with primary care. Return if you worsen including increased swelling, spreading redness, fever/chills, or any other concerning symptoms.
[2018-09-22] MEDS ORDERED: HYDROCODONE/ACETAMINOPHEN 5-325 MG (6 TAB/ER DISP) PO PRN (04:51)
== END 2018-09-22 05:14 | disposition home or self-care (01) ==
LOC: ER 01:15
DX: L02.01 Cutaneous abscess of face (principal)
CPT/HCPCS: 99282; 10060; J3490 ×2

== ENCOUNTER 2018-11-29 15:15 | Emergency (ER) | payer MEDICAID ==
[2018-11-29] MEDS ORDERED: GUAIFENESIN 600 MG TABLET.SA PO ONE (18:23)
[2018-11-29] MEDS ORDERED: LORATADINE 10 MG TABLET PO ONE (18:23)
[2018-11-29] MEDS ORDERED: ACETAMINOPHEN 325 MG TABLET PO ONE (18:24)
[2018-11-29 19:05] LABS: ABSOLUTE EOSINOPHILS # (AUTO) 0.1 10^3/uL (0.0-0.6); ABSOLUTE LYMPHOCYTES (AUTO) 1.9 10^3/uL (0.5-4.7); ABSOLUTE MONOCYTES (AUTO) 0.5 10^3/uL (0.1-1.4); ABSOLUTE NEUT (AUTO) 2.7 10^3/uL (1.7-8.2); BASOPHILS % (AUTO) 0.7 % (0-2); EOSINOPHILS % (AUTO) 1.1 % (0-6); HEMATOCRIT 39.8 % (36.0-47.0); HEMOGLOBIN 13.2 g/dL (12.0-15.5); LYMPHOCYTES % (AUTO) 36.1 % (13-45); MEAN CORPUSCULAR HEMOGLOBIN 30.9 pg (27.0-33.4); MEAN CORPUSCULAR HGB CONC 33.2 g/dL (32.0-36.0); MEAN CORPUSCULAR VOLUME 93 fl (80-97); MONOCYTES % (AUTO) 9.6 % (3-13); PLATELET COUNT 170 10^3/uL (150-450); RED BLOOD COUNT 4.29 10^6/uL (3.72-5.28); SEGMENTED NEUTROPHILS % (AUTO) 52.5 % (42-78); TOTAL CELLS COUNTED % (AUTO) 100 %; WHITE BLOOD COUNT 5.2 10^3/uL (4.0-10.5)
[2018-11-29 19:08] LABS: APPEARANCE,URINE SLIGHTLY-CLOUDY; BILIRUBIN,URINE NEGATIVE (NEGATIVE); COLOR,URINE YELLOW; GLUCOSE, URINE NEGATIVE (NEGATIVE); KETONES,URINE NEGATIVE (NEGATIVE); LEUKOCYTE ESTERASE,URINE SMALL (NEGATIVE); NITRITE,URINE NEGATIVE (NEGATIVE); PROTEIN,URINE NEGATIVE (NEGATIVE)
[2018-11-29 19:21] LABS: URINE AMPHETAMINES SCREEN NEGATIVE; URINE BARBITURATES SCREEN NEGATIVE; URINE BENZODIAZEPINES SCREEN NEGATIVE; URINE COCAINE SCREEN NEGATIVE; URINE MARIJUANA (THC) SCREEN NEGATIVE; URINE METHADONE SCREEN NEGATIVE; URINE PHENCYCLIDINE SCREEN NEGATIVE
[2018-11-29 19:23] LABS: ALBUMIN 4.4 g/dL (3.5-5.0); ALKALINE PHOSPHATASE 59 U/L (38-126); ANION GAP 10 (5-19); ASPARTATE AMINO TRANSFERASE 22 U/L (14-36); BILIRUBIN,DIRECT 0.3 mg/dL (0.0-0.4); BILIRUBIN,TOTAL 0.8 mg/dL (0.2-1.3); BLOOD UREA NITROGEN 9 mg/dL (7-20); CARBON DIOXIDE 24 mmol/L (22-30); CHLORIDE 106 mmol/L (98-107); POTASSIUM 4.2 mmol/L (3.6-5.0); TOTAL PROTEIN 6.9 g/dL (6.3-8.2)
--- NOTE | 2018-11-29 19:46 | ER Document Report ---
ED ENT - General Chief Complaint: Headache Stated Complaint: HEADACHE Time Seen by Provider: 11/29/18 17:01 Mode of Arrival: Ambulatory Information source: Patient Notes: 23-year-old female presented to ED for complaint of headache cough congestion chest pain abdominal pain. She states she has had the symptoms off and on for 2 to 3 days. She states she wakes up coughing which makes her chest hurt. She states she has had a headache from the cough and also. She denies any fevers nausea or vomiting. She states her only past medical history is ADHD anxiety and depression. She states she has had some clear vaginal discharge. She states she lives with her female fivance. Last menstrual period was the end of October. TRAVEL OUTSIDE OF THE [place] IN LAST 30 DAYS: No - HPI Patient complains to provider of: Other - Headache postnasal drip sinus pressure body aches Onset: Other - 2 to 3 days Onset/Duration: Intermittent Quality of pain: Achy Severity: Moderate Pain Level: 3 Location of pain: Nose, Sinus, Other - Headache body aches Associated symptoms: Congestion, Cough, Headache, Sinus drainage, Other - Body aches Similar symptoms previously: Yes Recently seen / treated by doctor: Yes - Related Data Allergies/Adverse Reactions: ibuprofen [From Motrin] Allergy (Verified 09/22/18 01:27) naproxen Allergy (Verified 09/22/18 01:27) Past Medical History - General Information source: Patient - Social History Smoking Status: Never Smoker Frequency of alcohol use: None Drug Abuse: None Lives with: Spouse/Significant other - Female fivance Family History: None Patient has suicidal ideation: No Patient has homicidal ideation: No - Past Medical History Cardiac Medical History: Reports: None Pulmonary Medical History: Reports: Hx Asthma EENT Medical History: Reports: None Neurological Medical History: Reports: None Endocrine Medical History: Reports: None Renal/ Medical History: Reports: None GI Medical History: Reports: None Musculoskeletal Medical History: Reports None Skin Medical History: Reports None Psychiatric Medical History: Reports: Hx Anxiety, Hx Attention Deficit Hyperactivity Disorder, Hx Bipolar Disorder, Hx Depression Traumatic Medical History: Reports: None Infectious Medical History: Reports: None Past Surgical History: Reports: Hx Oral Surgery - wisdom teeth, Hx Tonsillectomy - Immunizations Hx Diphtheria, Pertussis, Tetanus Vaccination: Yes Review of Systems - Review of Systems Constitutional: No symptoms reported EENT: Nose congestion, Nose discharge, Sinus pressure, Sinus discharge Cardiovascular: No symptoms reported, Other - Body aches Respiratory: Cough Gastrointestinal: Abdominal pain, Diarrhea. denies: Nausea, Vomiting Genitourinary: No symptoms reported Female Genitourinary: No symptoms reported Musculoskeletal: Muscle pain - Body aches Skin: No symptoms reported Hematologic/Lymphatic: No symptoms reported Neurological/Psychological: No symptoms reported -: Yes All other systems reviewed and negative Physical Exam - Vital signs Vitals: Temp Pulse Resp BP Pulse Ox 98.4 F 80 16 109/55 L 99 11/29/18 16:02 11/29/18 16:02 11/29/18 16:02 11/29/18 16:02 11/29/18 16:02 Interpretation: Normal - General General appearance: Appears well, Alert - HEENT Head: Normocephalic, Atraumatic Eyes: Normal Pupils: PERRL Ears: Normal External canal: Normal Tympanic membrane: Normal Sinus: Normal Nasal: Purulent discharge, Swelling Mouth/Lips: Normal Mucous membranes: Normal Pharynx: Post nasal drainage Neck: Normal - Respiratory Respiratory status: No respiratory distress Chest status: Nontender Breath sounds: Nonproductive cough. No: Productive cough, Rales, Rhonchi, S tridor, Wheezing Chest palpation: Normal - Cardiovascular Rhythm: Regular Heart sounds: Normal auscultation Murmur: No - Abdominal Inspection: Normal Distension: No distension Bowel sounds: Hyperactive Tenderness: Nontender. No: Tender Organomegaly: No organomegaly - Back Back: Normal, Nontender - Extremities General upper extremity: Normal inspection, Nontender, Normal color, Normal ROM, Normal temperature General lower extremity: Normal inspection, Nontender, Normal color, Normal ROM, Normal temperature, Normal weight bearing. No: Skip's sign - Neurological Neuro grossly intact: Yes Cognition: Normal Orientation: AAOx4 Mary Ann Coma Scale Eye Opening: Spontaneous Mary Ann Coma Scale Verbal: Oriented Mary Ann Coma Scale Motor: Obeys Commands Mary Ann Coma Scale Total: 15 Speech: Normal Motor strength normal: LUE, RUE, LLE, RLE Sensory: Normal - Psychological Associated symptoms: Normal affect, Normal mood - Skin Skin Temperature: Warm Skin Moisture: Dry Skin Color: Normal Course - Re-evaluation Re-evalutation: 11/29/18 20:51 Patient states her headache and most of her pain was relieved when she received Tylenol Mucinex and Claritin. She states she feels much better and will go and buy these at the drugstore. After performing a Medical Screening Examination, I estimate there is LOW risk for ACUTE CORONARY SYNDROME, RESPIRATORY FAILURE, SEPSIS OR MENINGITIS, thus I consider the discharge disposition reasonable. I have reevaluated this patient multiple times and no significant life threatening changes are noted. The patient and I have discussed the diagnosis and risks, and we agree with discharging home with close follow-up. We also discussed returning to the Emergency Department immediately if new or worsening symptoms occur. We have discussed the symptoms which are most concerning (e.g., changing or worsening pain, trouble swallowing or breathing, neck stiffness, fever) that necessitate immediate return. - Vital Signs Vital signs: Temp Pulse Resp BP Pulse Ox 98.6 F 56 L 18 117/65 99 11/29/18 19:48 11/29/18 19:48 11/29/18 19:48 11/29/18 19:48 11/29/18 19:48 - Laboratory Result Diagrams: 11/29/18 17:15 11/29/18 17:15 Laboratory results interpreted by me: 11/29/18 11/29/18 17:15 17:15 Glucose 67 L Urine Urobilinogen 4.0 H Ur Leukocyte Esterase SMALL H Urine Ascorbic Acid 20 H Discharge - Discharge Clinical Impression: URI (upper respiratory infection) Qualifiers: URI type: unspecified viral URI Qualified Code(s): J06.9 - Acute upper respiratory infection, unspecified Headache Qualifiers: Headache type: unspecified Headache chronicity pattern: unspecified pattern Intractability: not intractable Qualified Code(s): R51 - Headache Condition: Stable Disposition: HOME, SELF-CARE Instructions: Family Physicians / Practices Additional Instructions: UPPER RESPIRATORY ILLNESS: You have a viral infection of the respiratory passages -- a "cold." This common infection causes nasal congestion, drainage, and often sore throat and cough. It is highly contagious. The disease usually lasts about 10 to 14 days. There is no "cure" for the viral infection -- it must run its course. If there is a complication, such as bacterial infection in the nose, sinuses, middle ear, or bronchial tubes, antibiotics may be required. The antibiotics won't affect the virus. Drink plenty of fluids. A humidifier may help. An expectorant medication or decongestant may make you more comfortable. Use acetaminophen or ibuprofen for fever or aches. See the doctor if fever persists over two days, if there is any significant worsening of your symptoms, or if you simply fail to improve as expected. DECONGESTANT MEDICATION: A decongestant medicine has been suggested. Often this medicine is combined in the same tablet with an antihistamine or expectorant. This type of medicine is helpful in treating a bad cold or sinus condition, as well as in treatment of the nasal congestion of hay fever. It is not of much benefit for lung infections. Decongestant medicines are related to stimulants. They can cause an i ncrease in blood pressure and heart rate. Persons with heart disease and high blood pressure should not take decongestants without discussing this with the physician. If you develop palpitations, chest pain, headache, or tremors, stop the medicine and consult your physician. COUGH-SUPPRESSANT & EXPECTORANT MEDICATION: You are to use a cough medication as needed for relief of symptoms. This medicine is a combination of an expectorant (to make the mucous thinner and more easily "coughed up") and a cough suppressant (to reduce the frequency of coughing). The cough-suppressant medicine is related to narcotics. You may experience mild nausea and sleepiness. Some patients who are very sensitive to narcotics may have stomach pain from this medicine. Taking the medicine with food reduces these side effects. Do not drive or work with machinery until you know how this medicine affects you. The expectorant should have no side effects. Iodine-containing expectorants (such as organidin) should not be taken by persons with active thyroid disease unless approved by your doctor. Call the doctor if you develop shortness of breath, hives, rash, itching, lightheadedness, or severe nausea and vomiting. USE OF ACETAMINOPHEN (Tylenol): Acetaminophen may be taken for pain relief or fever control. It's much safer than aspirin, offering a wider range of "safe" dosages. It is safe during . Some brand names are Tylenol, Panadol, Datril, Anacin 3, Tempra, and Liquiprin. Acetaminophen can be repeated every four hours. The following are maximum recommended dosages: >89 pounds or adults 650 mg to 900 mg Acetaminophen can be repeated every four hours. Maximum dose not to exceed 4000 mg a day. You were treated with Mucinex and Claritin in the emergency room with Tylenol. These medications for cough and cold congestion. Can also use Flonase nasal spray this will also help to decrease the secretions that are going down the back your throat causing you to cough causing your body aches. Tylenol will help with your discomfort. Salt and soda solution gargles will decrease the drainage from the back your throat. Please follow-up with primary care doctor. Take your headache was relieved with the medications I did give you which I have listed above. Salt and soda solution 1 quart of water 1 tablespoon of salt 1 teaspoon of baking soda Mixed 3 ingredients together and boil for 1 minute Placed in a covered quart jar Use 1/2 ounce of cold solution to gargle 3 times a day FOLLOW-UP CARE: If you have been referred to a physician for follow-up care, call the physicians office for an appointment as you were instructed or within the next two days. If you experience worsening or a significant change in your symptoms, notify the physician immediately or return to the Emergency Department at any time for re-evaluation. Forms: Return to Work
[2018-11-29 19:49] VITALS: BP 117/65
[2018-11-29 19:58] LABS: GLUCOSE 67 mg/dL (75-110)
== END 2018-11-29 20:12 | disposition home or self-care (01) ==
LOC: ER 15:15
DX: J06.9 Acute upper respiratory infection, unspecified (principal); B97.89 Other viral agents as the cause of diseases classified elsewhere; R51 Headache; R05 Cough; R07.9 Chest pain, unspecified; R10.9 Unspecified abdominal pain; N89.8 Other specified noninflammatory disorders of vagina; R09.82 Postnasal drip; J45.909 Unspecified asthma, uncomplicated; R09.81 Nasal congestion; R19.7 Diarrhea, unspecified; M79.10 Myalgia, unspecified site; Z88.8 Allergy status to other drugs, medicaments and biological substances
CPT/HCPCS: 36415; 87086; 84703; 85025; 80053; 81001; 80307; J3490 ×3; 99284

== ENCOUNTER 2019-02-24 20:07 | Emergency (ER) | payer MEDICAID ==
[2019-02-24 20:13] VITALS: BP 137/79
[2019-02-24] MEDS ORDERED: ACETAMINOPHEN 325 MG TABLET PO ONE (21:28)
[2019-02-24] MEDS ORDERED: ONDANSETRON 4 MG TAB.RAPDIS PO ONE (21:28)
--- NOTE | 2019-02-24 21:28 | ER Document Report ---
ED Medical Screen (RME) - General Chief Complaint: Cold Symptoms Stated Complaint: DIZZINESS,STOMACHACHE,EAR PAIN,FEVER Time Seen by Provider: 02/24/19 21:23 Mode of Arrival: Ambulatory Information source: Patient Notes: 23-year-old female presented to ED for complaint of fever dizziness nausea earache and headache since Wednesday. She states Wednesday she had a temperature of 100.8 and she had a temperature of 103.1 she states she took Aleve when she had the fever. States she has not checked her temperature today. Her temperature is 98.1 in the emergency room and she states she has not had any Tylenol or Motrin today. She states she has not been to the doctor this week. She states she has not had any vomiting. She states last menstrual period was February 18, 2019. She states she came to the emergency room tonight because it was her day off and she has not been able to take off work to come in. She said her head is hurting really bad she is afebrile tonight and she is continued to be dizzy and nausea. Treat with Tylenol and Zofran and have examined by another provider. I have greeted and performed a rapid initial assessment of this patient. A comprehensive ED assessment and evaluation of the patient, analysis of test results and completion of medical decision making process will be conducted by an additional ED providers. TRAVEL OUTSIDE OF THE [place] IN LAST 30 DAYS: No - Related Data Allergies/Adverse Reactions: ibuprofen [From Motrin] Allergy (Verified 02/24/19 20:10) naproxen Allergy (Verified 02/24/19 20:10) Home Medications: Adderall Past Medical History Pulmonary Medical History: Reports: Hx Asthma Renal/ Medical History: Reports: Hx Peritoneal Dialysis Psychiatric Medical History: Reports: Hx Anxiety, Hx Attention Deficit Hyperactivity Disorder, Hx Bipolar Disorder, Hx Depression Past Surgical History: Reports: Hx Oral Surgery - wisdom teeth, Hx Tonsillectomy - Immunizations Hx Diphtheria, Pertussis, Tetanus Vaccination: Yes Physical Exam - Vital signs Vitals: Temp Pulse Resp BP Pulse Ox 98.1 F 68 20 137/79 H 100 02/24/19 20:11 02/24/19 20:11 02/24/19 20:11 02/24/19 20:11 02/24/19 20:11 Course - Vital Signs Vital signs: Temp Pulse Resp BP Pulse Ox 98.1 F 68 20 137/79 H 100 02/24/19 20:11 02/24/19 20:11 02/24/19 20:11 02/24/19 20:11 02/24/19 20:11
[2019-02-24] MEDS ORDERED: ONDANSETRON ODT 4 MG TAB (6 TAB/ER DISP) PO PRN (22:39)
--- NOTE | 2019-02-24 22:40 | ER Document Report ---
HPI - HPI Patient complains to provider of: earache, fever, nausea, dizziness Time Seen by Provider: 02/24/19 21:23 Pain Level: 4 Context: 23-year-old female presents with bilateral earache, nausea, dizziness, headache, fever, nasal congestion for 5 days. Patient states she had a fever a few days ago and with relief. States left ear is worse than right ear. Is afebrile in the ER at this time. Patient denies taking any meds today. She was given normal and Zofran in triage with relief of nausea and pain. - REPRODUCTIVE Reproductive: DENIES: : Past Medical History - General Information source: Patient - Social History Smoking Status: Never Smoker Family History: None Patient has suicidal ideation: No Patient has homicidal ideation: No Pulmonary Medical History: Reports: Hx Asthma Renal/ Medical History: Reports: Hx Peritoneal Dialysis Psychiatric Medical History: Reports: Hx Anxiety, Hx Attention Deficit Hyperactivity Disorder, Hx Bipolar Disorder, Hx Depression Past Surgical History: Reports: Hx Oral Surgery - wisdom teeth, Hx Tonsillectomy - Immunizations Hx Diphtheria, Pertussis, Tetanus Vaccination: Yes Vertical Provider Document - CONSTITUTIONAL Notes: GENERAL: Well-appearing, well-nourished and in no acute distress. HEAD: Atraumatic, normocephalic. EYES: Extraocular movements intact, sclera anicteric, conjunctiva are normal. ENT: TMs mild effusion bilaterally with no erythema or pus, nares patent, oropharynx clear without exudates. Uvula midline without edema. No trismus, no muffled voice. moist mucous membranes. NECK: Normal range of motion, supple without lymphadenopathy or JVD. LUNGS: Breath sounds clear to auscultation bilaterally and equal. No wheezes rales or rhonchi. HEART: Regular rate and rhythm without murmurs, rubs or gallops. ABDOMEN: Soft, nontender, No guarding, no rebound. No masses appreciated. EXTREMITIES: Normal range of motion, no pitting or edema. No clubbing or cyanosis. NEUROLOGICAL: Cranial nerves II through XII grossly intact. Normal speech, normal gait. PSYCH: Normal mood, normal affect. SKIN: Warm, Dry, normal turgor, no rashes or lesions noted. - INFECTION CONTROL TRAVEL OUTSIDE OF THE [place] IN LAST 30 DAYS: No Course - Re-evaluation Re-evalutation: 02/24/19 Presentation is most consistent with a viral upper respiratory i nfection. Patient is overall well appearance, nontoxic, vitals within normal limits, well-hydrated. Headache relieved with Tylenol. Nausea relieved with Zofran. Patient denies any neck pain, and has no evidence of meningismus on examination. Lungs are clear bilaterally. No evidence of respiratory distress. Based on clinical exam and history, I do not suspect an acute pneumonia, meningitis, strep pharyngitis, or an acute encephalitis. No laboratory or imaging testing is indicated at this time. Will discharge patient with return precautions and followup recommendations. They are in agreement this plan have verbalized understanding return precautions. - Vital Signs Vital signs: Temp Pulse Resp BP Pulse Ox 98.1 F 68 20 137/79 H 100 02/24/19 20:11 02/24/19 20:11 02/24/19 20:11 02/24/19 20:11 02/24/19 20:11 Discharge - Discharge Clinical Impression: Acute URI Condition: Stable Disposition: HOME, SELF-CARE Instructions: Acetaminophen, Antinausea Medication ([facility]), Upper Respiratory Illness ([facility]) Additional Instructions: Maintain adequate fluid intake tylenol/ibuprofen as needed alternating every 3 hours for fever/body ache prescription medications as prescribed zofran for nausea/vomiting as prescribed over the counter cold medication as needed for symptoms Humidified air may help Wash your hands regularly Wear a mask when coughing F/u: with your PCM in 2-3 days for a recheck Return to the ED with any fever, altered mental status/behavior, chest pain, palpitations, syncope, headache, neck pain/stiffness, shortness of breath, chest pains, wheezing, drooling, trouble swallowing/breathing, abdominal pain, vomiting, diarrhea, rash, or worsening/concerning symptoms otherwise. Prescriptions: Fexofenadine/Pseudoephedrine [Leeann-D 24 Hour Tablet] 1 each PO DAILY #20 tab.er.24h Fluticasone Propionate [Flonase Nasal Elsa 50 Mcg/Elsa 16 gm] 2 sprays NASL Q12 #1 inhaler Referrals: ROGERS NAVAS MD [ACTIVE STAFF] - Follow up as needed
== END 2019-02-24 22:50 | disposition home or self-care (01) ==
LOC: ER 20:07
DX: J06.9 Acute upper respiratory infection, unspecified (principal); H92.03 Otalgia, bilateral; R11.0 Nausea; R42 Dizziness and giddiness; R51 Headache; R50.9 Fever, unspecified; R09.81 Nasal congestion; J45.909 Unspecified asthma, uncomplicated
CPT/HCPCS: 82962; 81025; J3490; S0119; 99283

== ENCOUNTER 2020-02-17 11:47 | Emergency (ER) | payer BC, MEDICAID ==
[2020-02-17 11:53] VITALS: BP 119/49
--- NOTE | 2020-02-17 12:34 | ER Document Report ---
ED Neck/Back Problem - General Chief Complaint: Back Pain Stated Complaint: FALL/HIP AND BACK PAIN Time Seen by Provider: 02/17/20 12:26 Primary Care Provider: AISHA MOON MD [Primary Care Provider] - Follow up as needed Notes: CHIEF COMPLAINT: Left lower back and hip discomfort following a fall out of bed HPI: 24-year-old female presenting with left lower back and hip discomfort with walking after falling out of bed 3 to 4 days ago. Was reaching for something and rolled out of the bed landing on her left side. Has been ambulatory since that. States she struck her right lower leg on something next to the bed. Patient has been able to weight-bear but was at work today and felt like walking so much aggravated her back. Took Tylenol today without resolution of symptoms. No abdominal or flank pain no hematuria. Denies numbness or tingling into the leg. ROS: See HPI - all other systems were reviewed and are otherwise negative Constitutional: no fever GI: no vomiting, no diarrhea, no abdominal pain : no dysuria Integumentary: no rash Allergy: no hives Musculoskeletal: + extremity pain or swelling, positive back pain Neurological: no numbness/tingling, no weakness MEDICATIONS: I agree with the patient medications as charted by the RN. ALLERGIES: I agree with the allergies as charted by the RN. PAST MEDICAL HISTORY/PAST SURGICAL HISTORY: Reviewed and agree as charted by RN. SOCIAL HISTORY: Reviewed and agree as charted by RN. FAMILY HISTORY: No significant familial comorbid conditions directly related to patient complaint EXAM: Reviewed vital signs as charted by RN. CONSTITUTIONAL: Alert and oriented and responds appropriately to questions. Well-appearing; well-nourished HEAD: Normocephalic; atraumatic EYES: Conjunctivae clear, sclerae non-icteric ENT: normal nose; no rhinorrhea; moist mucous membranes NECK: Supple without meningismus; non-tender; no cervical lymphadenopathy, no masses CARD: symmetric distal pulses RESP: Normal chest excursion without splinting or tachypnea ABD/GI: Normal bowel sounds; non-distended; soft, non-tender, no rebound, no guarding; no palpable organomegaly or masses. BACK: The back appears normal and is nontender to palpation directly over the lumbar spine. Mild left lateral lumbar muscular tenderness on palpation, there is no CVA tenderness EXT: Normal ROM in all joints; non-tender to palpation; no cyanosis, no effusions, no edema. No tenderness on palpation of the left lower extremity including the hip. Patient is able to weight-bear gait is normal SKIN: Normal color for age and race; warm; dry; good turgor; no acute lesions noted NEURO: Moves all extremities equally; Motor and sensory function intact PSYCH: The patient's mood and manner are appropriate. Grooming and personal hygiene are appropriate. MDM: 24-year-old female presenting with left lower back injury 3 days ago when she rolled off her bed at home. Has not been consistently taking medications for this we will have her take Flexeril, warm heat orthopedic follow-up. Patient requesting a work note for the next 2 days. I was going to place patient on anti-inflammatories as well but she states that naproxen and ibuprofen make her throat swell so I will not place her on these at this time TRAVEL OUTSIDE OF THE [place] IN LAST 30 DAYS: No - Related Data Allergies/Adverse Reactions: ibuprofen [From Motrin] Allergy (Verified 02/24/19 20:10) naproxen Allergy (Verified 02/24/19 20:10) Past Medical History - Social History Smoking Status: Unknown if Ever Smoked Family History: None Pulmonary Medical History: Reports: Hx Asthma Renal/ Medical History: Reports: Hx Peritoneal Dialysis Psychiatric Medical History: Reports: Hx Anxiety, Hx Attention Deficit Hyperactivity Disorder, Hx Bipolar Disorder, Hx Depression Past Surgical History: Reports: Hx Oral Surgery - wisdom teeth, Hx Tonsillectomy - Immunizations Hx Diphtheria, Pertussis, Tetanus Vaccination: Yes Physical Exam - Vital signs Vitals: Temp Pulse Resp BP Pulse Ox 98.7 F 82 18 119/49 L 99 02/17/20 11:52 02/17/20 11:52 02/17/20 11:52 02/17/20 11:52 02/17/20 11:52 Course - Vital Signs Vital signs: Temp Pulse Resp BP Pulse Ox 98.7 F 82 18 119/49 L 99 02/17/20 11:52 02/17/20 11:52 02/17/20 11:52 02/17/20 11:52 02/17/20 11:52 Discharge - Discharge Clinical Impression: Fall Qualifiers: Encounter type: initial encounter Qualified Code(s): W19.XXXA - Unspecified fall, initial encounter Acute lumbar myofascial strain Qualifiers: Encounter type: initial encounter Qualified Code(s): S39.012A - Strain of muscle, fascia and tendon of lower back, initial encounter Condition: Stable Disposition: HOME, SELF-CARE Additional Instructions: 1. Warm heat to the lower back twice daily 2. no heavy lifting for 2-3 days 3. medications as prescribed, no driving on muscle relaxers 4. follow up with orthopedics for further evaluation and treatment as needed for any continuing pain or problems, call for appt. 5. return to the ER for any onset of incontinence of urine, fever > 101 or worsening condition Prescriptions: Cyclobenzaprine HCl [Flexeril 10 mg Tablet] 10 mg PO TIDP PRN #15 tab PRN Reason: Forms: Return to Work Referrals: AISHA MOON MD [Primary Care Provider] - Follow up as needed THUAN SAENZ JR, DO [ACTIVE PROVISIONAL STAFF] - Follow up as needed
== END 2020-02-17 12:31 | disposition home or self-care (01) ==
LOC: ER 11:47
DX: S39.012A Strain of muscle, fascia and tendon of lower back, initial encounter (principal); M25.552 Pain in left hip; W06.XXXA Fall from bed, initial encounter
CPT/HCPCS: 99283

== ENCOUNTER 2020-04-07 23:15 | Emergency (ER) | payer BC ==
--- NOTE | 2020-04-07 23:57 | ER Document Report ---
ED Medical Screen (RME) - General Chief Complaint: Vaginal Bleeding Stated Complaint: VAGINAL BLEEDING/ISSUE WITH CONTROL Time Seen by Provider: 04/07/20 23:52 Mode of Arrival: Ambulatory Information source: Patient Notes: Patient is a 24-year-old female comes emergency room complaining of vaginal bleeding. Patient states that she started bleeding on March 19 and has been going through at least 3 boxes of heavy pads and 3 boxes of tampons since that point time. She states she is here tonight because she cannot take the bleeding anymore and she is becoming excessively tired. Patient does state that she sees the [facility] here she saw them prior to March for abnormal abdominal cramping during her periods but she has not seen him in follow-up for the bleeding. She states she is contact them but they do not have any appointments until late April. Patient denies any other medical problems. She has never been . She does state that she smokes. She is complaining of back and suprapubic tenderness. Physical lamination shows patient be a well-nourished well-developed 24-year-old female no apparent distress. Cardiac: Patient displays a rate of approximately 66 bpm on monitor no murmurs auscultated. Lungs: Bilateral breath sounds increased clear to auscultation. Abdomen: In a sitting position patient displays some mild tenderness suprapubically to palpation. No flank pain noted at this time. Bowel sounds are present all 4 quads. I have greeted and performed a rapid initial assessment of this patient. A comprehensive ED assessment and evaluation of the patient, analysis of test results and completion of the medical decision making process will be conducted by additional ED providers. Dictation of this chart was performed using voice recognition software; therefore, there may be some unintended grammatical errors. TRAVEL OUTSIDE OF THE [place] IN LAST 30 DAYS: No - Related Data Allergies/Adverse Reactions: ibuprofen [From Motrin] Allergy (Verified 02/24/19 20:10) naproxen Allergy (Verified 02/24/19 20:10) Past Medical History Pulmonary Medical History: Reports: Hx Asthma Renal/ Medical History: Reports: Hx Peritoneal Dialysis Psychiatric Medical History: Reports: Hx Anxiety, Hx Attention Deficit Hyperactivity Disorder, Hx Bipolar Disorder, Hx Depression Past Surgical History: Reports: Hx Oral Surgery - wisdom teeth, Hx Tonsillectomy - Immunizations Hx Diphtheria, Pertussis, Tetanus Vaccination: Yes Physical Exam - Vital signs Vitals: Temp Pulse Resp BP Pulse Ox 98.4 F 66 14 124/61 99 04/07/20 11:30 04/07/20 11:30 04/07/20 11:30 04/07/20 11:30 04/07/20 11:30 Course - Vital Signs Vital signs: Temp Pulse Resp BP Pulse Ox 98.4 F 66 14 124/61 99 04/07/20 11:30 04/07/20 11:30 04/07/20 11:30 04/07/20 11:30 04/07/20 11:30
[2020-04-08 00:28] LABS: ABSOLUTE EOSINOPHILS # (AUTO) 0.1 10^3/uL (0.0-0.6); ABSOLUTE LYMPHOCYTES (AUTO) 3.3 10^3/uL (0.5-4.7); ABSOLUTE MONOCYTES (AUTO) 0.5 10^3/uL (0.1-1.4); ABSOLUTE NEUT (AUTO) 2.3 10^3/uL (1.7-8.2); BASOPHILS % (AUTO) 0.5 % (0-2); EOSINOPHILS % (AUTO) 1.8 % (0-6); HEMATOCRIT 37.6 % (36.0-47.0); HEMOGLOBIN 12.7 g/dL (12.0-15.5); LYMPHOCYTES % (AUTO) 52.3 % (13-45); MEAN CORPUSCULAR HGB CONC 33.8 g/dL (32.0-36.0); MEAN CORPUSCULAR VOLUME 92 fl (80-97); MONOCYTES % (AUTO) 8.6 % (3-13); PLATELET COUNT 211 10^3/uL (150-450); RED BLOOD COUNT 4.09 10^6/uL (3.72-5.28); SEGMENTED NEUTROPHILS % (AUTO) 36.8 % (42-78); TOTAL CELLS COUNTED % (AUTO) 100 %; WHITE BLOOD COUNT 6.2 10^3/uL (4.0-10.5)
[2020-04-08 00:40] LABS: APPEARANCE,URINE CLEAR; BILIRUBIN,URINE NEGATIVE (NEGATIVE); COLOR,URINE YELLOW; GLUCOSE, URINE NEGATIVE (NEGATIVE); KETONES,URINE NEGATIVE (NEGATIVE); LEUKOCYTE ESTERASE,URINE NEGATIVE (NEGATIVE); NITRITE,URINE NEGATIVE (NEGATIVE); PROTEIN,URINE NEGATIVE (NEGATIVE); URINE SPECIFIC GRAVITY 1.028; UROBILINOGEN,URINE NEGATIVE mg/dL (<2.0)
[2020-04-08 00:47] LABS: ALBUMIN 4.1 g/dL (3.5-5.0); ALKALINE PHOSPHATASE 65 U/L (38-126); ANION GAP 7 (5-19); ASPARTATE AMINO TRANSFERASE 24 U/L (14-36); BILIRUBIN,DIRECT 0.1 mg/dL (0.0-0.4); BILIRUBIN,TOTAL 0.4 mg/dL (0.2-1.3); BLOOD UREA NITROGEN 19 mg/dL (7-20); CALCIUM 9.6 mg/dL (8.4-10.2); CARBON DIOXIDE 25 mmol/L (22-30); CHLORIDE 109 mmol/L (98-107); GLUCOSE 97 mg/dL (75-110); POTASSIUM 4.5 mmol/L (3.6-5.0); TOTAL PROTEIN 6.8 g/dL (6.3-8.2)
--- NOTE | 2020-04-08 01:19 | RADIOLOGY REPORT (SQ) ---
Ultrasound pelvis transabdominal on 04/08/2020 at 12:19 AM Clinical indications: Abnormal uterine bleeding COMPARISON: None FINDINGS: Multiple sonographic images are obtained throughout the pelvis by transabdominal approach only as the patient refused transvaginal imaging, both transverse and sagittal images are obtained. Uterus measures approximately 7.1 x 3.2 x 5.6 cm. The right ovary measures approximately 2.7 x 1.9 x 1.4 cm. Flow is demonstrated within the right ovary. Endometrial stripe measures 1.1 cm which is within normal limits. Left ovary is not visualized. No adnexal mass or fluid collection is noted. No free fluid is noted. IMPRESSION: Unremarkable exam.
[2020-04-08] MEDS ORDERED: HYDROCODONE/ACETAMINOPHEN 5-325 MG (6 TAB/ER DISP) PO PRN (04:04)
--- NOTE | 2020-04-08 04:04 | ER Document Report ---
ED GI/ - General Chief Complaint: Vaginal Bleeding Stated Complaint: VAGINAL BLEEDING/ISSUE WITH CONTROL Time Seen by Provider: 04/07/20 23:52 Primary Care Provider: YESICA MOSER MD [Primary Care Provider] - 04/08/20 Mode of Arrival: Ambulatory Notes: Patient is a 24-year-old female presents to the emergency department with a chief complaint of vaginal bleeding. Patient states that she has been bleeding for the past 3 weeks. Patient received the Depo Provera shot in mid February. States that her last menstrual cycle prior to her bleeding was earlier in February. Patient does have history of bleeding like this in the past. States that she does have some cramping. Patient has not followed up with [facility] in regards to this. States that she goes through about 3-4 pads an hour. TRAVEL OUTSIDE OF THE [place] IN LAST 30 DAYS: No - Related Data Allergies/Adverse Reactions: ibuprofen [From Motrin] Allergy (Verified 02/24/19 20:10) naproxen Allergy (Verified 02/24/19 20:10) Home Medications: adderall Past Medical History - General Information source: Patient - Social History Smoking Status: Current Every Day Smoker Family History: None Pulmonary Medical History: Reports: Hx Asthma Renal/ Medical History: Reports: Hx Peritoneal Dialysis Psychiatric Medical History: Reports: Hx Anxiety, Hx Attention Deficit Hyperactivity Disorder, Hx Bipolar Disorder, Hx Depression Past Surgical History: Reports: Hx Oral Surgery - wisdom teeth, Hx Tonsillectomy - Immunizations Hx Diphtheria, Pertussis, Tetanus Vaccination: Yes Review of Systems - Review of Systems Notes: REVIEW OF SYSTEMS: CONSTITUTIONAL : Denies recent illness. Denies recent unintentional weight loss. Denies fever, chills, or sweats. EENT: Denies eye, ear, throat, or mouth pain, discharge, or symptoms. Denies nasal or sinus congestion. CARDIOVASCULAR: Denies chest pain. RESPIRATORY: Denies shortness of breath, cough, congestion, difficulty breathing, or wheezing. GASTROINTESTINAL: Denies nausea, vomiting, and diarrhea. Denies constipation. See HPI. GENITOURINARY: Denies difficulty urinating, burning, blood in urine, urgency or frequency. FEMALE GENITOURINARY: See HPI. MUSCULOSKELETAL: Denies neck and back pain. Denies joint pain or swelling. SKIN: Denies rash, itchiness, or lesions HEMATOLOGIC : Denies easy bruising or bleeding. LYMPHATIC: Denies swollen, painful, enlarged glands. NEUROLOGICAL: Denies no numbness or tingling denies weakness. Denies headache. Denies altered mental status. Denies alteration in speech. PSYCHIATRIC: Denies stress, anxiety, alteration in sleep patterns, or depression. All other systems reviewed and negative. Physical Exam - Vital signs Vitals: Temp Pulse Resp BP Pulse Ox 98.4 F 66 14 124/61 99 04/07/20 11:30 04/07/20 11:30 04/07/20 11:30 04/07/20 11:30 04/07/20 11:30 - Notes Notes: PHYSICAL EXAMINATION: GENERAL: Appears well, healthy, well-nourished, no acute distress. HEAD: Normocephalic, atraumatic. EYES: PERRL, conjunctiva normal, all extraocular movements intact, sclera nonicteric ENT: Moist mucous membranes. NECK: Supple, no noticeable swelling, redness, rash. Normal range of motion. LUNGS: Equal breath sounds bilaterally and clear to auscultation. No wheezes rales or rhonchi. CARDIOVASCULAR: S1-S2, regular rate, regular rhythm. Radial pulses 2+, normal. ABDOMEN: Normoactive bowel sounds. Soft, slightly tender mid lower abdomen, no guarding, no rebound tenderness, and no masses palpated. EXTREMITIES: Normal strength and range of motion, no pitting or edema. No cyanosis. NEUROLOGICAL: Moves all extremities upon command. Strength 5/5 in all extremities. PSYCH: Normal mood, normal affect. SKIN: Warm, dry. No rash, lesions, ulcerations noted. Normal skin turgor. Course - Re-evaluation Re-evalutation: 04/08/20 04:05 Hematology is unremarkable. No anemia noted. Chemistries are unremarkable. Urinalysis is also unremarkable. Urine culture was sent from triage. Pelvic ultrasound ordered from triage is unremarkable. I offered the patient a pelvic exam, but she declined because she was on her menstrual cycle. States that she would like to have her pelvic done by [facility] since she needs follow-up with them. Advised her to follow-up with the [facility] in the morning in regards to this visit. She is in agreement with this plan. Patient is nontoxic in appearance. Follow-up precautions were given. Verbal discharge instructions were given to the patient. They verbalized understanding. They are stable for discharge. - Vital Signs Vital signs: Temp Pulse Resp BP Pulse Ox 98.0 F 74 16 120/71 99 04/08/20 05:17 04/08/20 05:17 04/08/20 05:17 04/08/20 05:17 04/08/20 05:17 - Laboratory Results Result Diagrams: 04/08/20 00:09 04/08/20 00:09 Laboratory Results Interpreted: 04/08/20 04/08/20 00:09 00:09 Lymph % (Auto) 52.3 H Seg Neutrophils % 36.8 L Chloride 109 H Critical Laboratory Results Reviewed: No Critical Results - Radiology Results Critical Radiology Results Reviewed: No Critical Results Discharge - Discharge Clinical Impression: Vaginal bleeding Condition: Stable Disposition: HOME, SELF-CARE Additional Instructions: You were seen today in the emergency department for vaginal bleeding. Your labs and ultrasound are normal. Follow-up with her [facility] in the morning. For your pain medicine, you can take 1 tablet of the Boss every 4-6 hours as needed for pain. Forms: Return to Work Referrals: YESICA MOSER MD [Primary Care Provider] - 04/08/20
[2020-04-08 05:18] VITALS: BP 120/71
== END 2020-04-08 04:55 | disposition home or self-care (01) ==
LOC: ER 23:15
DX: N93.9 Abnormal uterine and vaginal bleeding, unspecified (principal); R25.2 Cramp and spasm; R10.819 Abdominal tenderness, unspecified site; F17.200 Nicotine dependence, unspecified, uncomplicated; J45.909 Unspecified asthma, uncomplicated; F90.9 Attention-deficit hyperactivity disorder, unspecified type; Z79.899 Other long term (current) drug therapy; Z79.3 Long term (current) use of hormonal contraceptives; Z88.8 Allergy status to other drugs, medicaments and biological substances
CPT/HCPCS: 36415; 76856; 80053; 81001; 81025; 85025; 87086; 99284